=== PATIENT | female | born 1960 | race Caucasian/White ===

== ENCOUNTER → 2023-01-16 10:08 | Outpatient (CLI) | payer OTHER, SELFPAY ==
--- NOTE | 2023-01-16 | DI.US.S_ITS ---
PROCEDURE: US ABDOMEN LIMITED INDICATIONS: ESOPHAGEAL VARICES. RULE OUT PORTAL HYPERTENSION. TECHNIQUE: Real-time focused scanning was performed of the abdomen, with image documentation. COMPARISON: None. FINDINGS: Liver is enlarged measuring 20.8 cm with diffuse steatosis. Gallbladder is been removed. Common bile duct measures 9.6 cm. Focus of decreased echogenicity is noted in the superior right kidney. Varices are not definitively identified. However, this is a markedly limited exam. IMPRESSION: Hepatomegaly with steatosis. Mild prominence of the common bile duct likely related to post cholecystectomy sequela. Secondary to marked limitation of exam, presence or absence of varices cannot be evaluated. Dictated by: uSjatha Nolasco M.D. on 01/16/2023 at 17:17 Approved by: Sujatha Nolasco M.D. on 01/16/2023 at 17:18
== END ==
PROVIDERS: PCP Physician Assistant Medical; Referring Provider Internal Medicine Gastroenterology; Visit Provider Internal Medicine Gastroenterology
DX: I85.00 Esophageal varices without bleeding (principal); R16.2 Hepatomegaly with splenomegaly, not elsewhere classified; Z90.49 Acquired absence of other specified parts of digestive tract
CPT/HCPCS: 76705

== ENCOUNTER → 2023-04-06 14:43 | Outpatient (CLI) | payer OTHER, SELFPAY ==
--- NOTE | 2023-04-08 01:56 | DI.NM.S_ITS ---
DATE OF SERVICE: 04/06/2023 PROCEDURE: Pharmacological perfusion study. 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 Perfusion study was planned for CAD risk stratification. RADIOPHARMACEUTICAL: 25.3 millicurie technetium-99m Myoview IV was injected at stress and 24.2 millicurie technetium-99m Myoview IV was injected at rest. The patient underwent pharmacological perfusion study under the supervision of an attending staff using standard intravenous Lexiscan as per protocol. Her weight is about 300 pounds. RADIOPHARMACEUTICAL: 25.3 millicurie technetium-99m Myoview IV was injected at stress and 24.2 millicurie technetium-99m Myoview IV was injected at rest. CARDIAC STRESS: The patient received IV Lexiscan, as per standard protocol. She remained hemodynamically stable. Blood pressure at rest 138/106 mmHg. Baseline rhythm was sinus. During stress, no convincing ischemic changes seen. Occasional PVCs. During Lexiscan, patient had toe discomfort and shortness of breath, which got resolved in recovery. No significant complex arrhythmias seen. RAW DATA: There is significant breast shadow seen. Increased subdiaphragmatic activity. Weight is at least 300 pounds. GATED STUDY: Resting LV ejection fraction 66 and stress LV ejection fraction 71% without any significant wall motion abnormalities. Resting end-diastolic volume 137 mL. TID ratio 1.10, which is within normal limits. MYOCARDIAL PERFUSION SCAN: Stress supine, resting supine, and stress prone images were compared to each other. Stress supine and resting supine images revealed small size, mildly decreased perfusion of mid to distal anterior wall extending into the apex as well as distal inferolateral wall which got completely resolved during stress prone images suggestive of tissue attenuation artifact. No convincing ischemia or infarction. CONCLUSION: I will call this study a normal myocardial perfusion study with evidence of breast tissue attenuation artifact, as well as some diaphragmatic tissue attenuation artifact which got resolved during stress prone images. Preserved left ventricular function. No complex arrhythmias. Baseline hypertension with blood pressure 138/106 mmHg. Overall, low-risk myocardial perfusion scan. Carley Nash - VELASQUEZ/waqas/jostin doc#: [id number]/job#: [id number] dd: 04/07/2023 17:38:00 dt: 04/08/2023 01:48:00 DICTATING MD/COPIES TO: Tiffany Garcia MD COPIES MNE: DON;
== END ==
PROVIDERS: PCP Physician Assistant Medical; Referring Provider Internal Medicine Cardiovascular Disease; Visit Provider Internal Medicine Cardiovascular Disease
DX: I49.3 Ventricular premature depolarization (principal); I47.1 Supraventricular tachycardia; R07.89 Other chest pain; I10 Essential (primary) hypertension; I26.99 Other pulmonary embolism without acute cor pulmonale; E78.00 Pure hypercholesterolemia, unspecified; R06.09 Other forms of dyspnea; R94.31 Abnormal electrocardiogram [ECG] [EKG]; C41.9 Malignant neoplasm of bone and articular cartilage, unspecified; G47.33 Obstructive sleep apnea (adult) (pediatric)
CPT/HCPCS: 78452; 93017; A9502; J2785